=== PATIENT | female | born 1975 | race Caucasian/White ===

== ENCOUNTER 2017-06-02 14:18 | Emergency (ER) | payer OTHER ==
[2017-06-02 15:10] LABS: RBC URINE 2 /hpf (0-3); URINE BACTERIA RARE (<OCC); URINE BILIRUBIN NEGATIVE (NEGATIVE); URINE BLOOD NEGATIVE (NEGATIVE); URINE COLOR Amber (YELLOW); URINE GLUCOSE (UA) 1+ mg/dL (Normal); URINE KETONE NEGATIVE (NEGATIVE); URINE LEUKOCYTE ESTERASE TRACE Leu/uL (Negative); URINE PROTEIN 1+ mg/dL (NEGATIVE); URINE UROBILINOGEN NORMAL mg/dL (0.2-1.0); WBC URINE 4 /hpf (0-5)
[2017-06-02 16:28] LABS: RBC URINE 1 /hpf (0-3); URINE BACTERIA RARE (<OCC); URINE BILIRUBIN NEGATIVE (NEGATIVE); URINE BLOOD NEGATIVE (NEGATIVE); URINE COLOR Yellow (YELLOW); URINE GLUCOSE (UA) NORMAL (Normal); URINE KETONE 1+ mg/dL (NEGATIVE); URINE LEUKOCYTE ESTERASE TRACE Leu/uL (Negative); URINE PROTEIN NEGATIVE (NEGATIVE); URINE UROBILINOGEN NORMAL mg/dL (0.2-1.0); WBC URINE 3 /hpf (0-5)
[2017-06-02 20:37] VITALS: BP 106/61; PULSE 91; TEMP 98.4
--- NOTE | 2017-06-02 22:18 | OBHP ---
Datetime: 06/02/2017 15:01 IP Adm Impression: , intrauterine IP Chief Complaint Other: Abdominal pain IP Admit Plan: Discharge home Admit Comment, IP Provider: Patient is a 41 year old at 32 weeks 5 days with KYLE 07/23/16 wa s sent from the office for evaluation of threatened labor. Patient had a cervical polyp remov ed 05/17. Patient states that she was feeling abdominal pain since 1-2am this morning. Pain is interm ittent and lasts for 2 minutes. States that she feels the pain approx every 30 minutes. Also states f eeling lower abdominal pressure that she says feels "like a weight coming out". Drinks 2-3 bottles of water daily. Endorses +FM, denies VB, LOF. Denies dysuria. Denies recent trauma or intercourse. Issues: Advanced Maternal Age OB Hx: 1. 2009 SAB at 4 weeks 2. Current [facility] Hx: LMP - 10/19/16 [facility] - 12 x irregular x 7 days Hx of fibroids and ovarian cysts Denies hx of STIs, abnormal pap smears Allergies: NKDA Medications: PNV Medical Hx: Denies Surgical Hx: Denies Social Hx: Denies alcohol, tobacco, drug use; legally , unemployed Family Hx: Mother age 72 - DM, HTN ; Father age 79 - Healthy ; denies hx of cancer PE: See above A/P: 41 year old at 32 weeks 5 days presents with abdominal pain/pressure -Stable, afebrile -CEFM and TOCO -IV hydration -Will send UA -Discussed with attending Carie Herrera DO PGY-1 OB addendum: Patient feeling better. Contractions resolved after IV hydration. Cervical exam uncha nged. UA results reviewed. Discussed with Dr Cartagena. Will repeat urine (clean catch) and send patie nt home with 24 hour urine collection container with instructions. Patient to be discharged home wit h labor precautions. Follow up with Dr Cartagena in 1 week. Carie Herrera DO PGY-1 Attending Note: patient seen, evaluated and examined by me with the Resident I agree with the docu mentaiton of events as above. Natalie has made no cervical change on serial cervical exam; also repo rts pressure/pain has resolved. Plan: 1) As above. - as per, and discussed with, Dr. Cartagena F[facility] - Baseline A Provider: 140 Contraction Comments Provider: irreg Comments, ACOG Physical Exam: VSS Gen: AAOx3 CV: RRR Lungs: CTA B/L Abd: Soft, gravid, fundal height 32cm Ext: No clubbing, cyanosis, edema SVE: Closed/30/high EGA AdmitDate IP: 32.5 Vital Signs Provider: Reviewed; Within Normal Limits IP Chief Complaint: Uterine contractions; Other NICHD Variability Prov Fetus A: Moderate 6-25bpm NICHD Accel Fetus A IP Provider: 15X15 Dilatation, Provider: closed Effacement, Provider: 30 Station, Provider: high
== END 2017-06-02 16:30 | disposition home or self-care (01) ==
LOC: C.EROB 14:18
DX: O26.893 Other specified pregnancy related conditions, third trimester (principal); R10.30 Lower abdominal pain, unspecified; Z3A.32 32 weeks gestation of pregnancy